=== PATIENT | female | born 1990 | race African-American/Black ===

== ENCOUNTER 2018-01-22 04:28 | Emergency (ER) | payer OTHER ==
--- NOTE | 2018-01-22 04:46 | ED Physician Documentation ---
History of Present Illness - Stated complaint Stated Complaint: CHEST PAIN - Chief complaint Chief Complaint: Cardiac - Additonal information Additional information: hx from pt 27 f denies preg s/p ttubal hx HTN used to be on amlodopine was in good health recent - no fever cough NVD travel leg pain or swelling awoke at midnight about 2 AM felt dull pain in her L shoulder and arm felt hot and cold then developed rapid palp checked her VS SBP was 140 and HR was high 90s on the way here felt mild SOA and LUQ discomfort sx subsided now but not completely gone Review of Systems Constitutional: denies: Fever, Chills Cardiac: reports: Chest pain / pressure, Palpitations Respiratory: reports: Dyspnea GI: reports: Abdominal Pain. denies: Nausea, Vomiting Musculoskeletal: reports: Joint pain (L shoulder) Endocrine: denies: Easy bruising / bleeding Immunocompromised: denies: Immunocompromised PD PAST MEDICAL HISTORY - Past Medical History Past Medical History: Yes Cardiovascular: Hypertension Respiratory: None Neuro: None Endocrine/Autoimmune: None GI: None SALT GRINDER: None : None HEENT: None Psych: None Musculoskeletal: None Derm: None - Past Surgical History Past Surgical History: Yes General: Other /SALT GRINDER: Tubal ligation - Allergies Allergies/Adverse Reactions: Allergies Allergy/AdvReac Type Severity Reaction Status Date / Time codeine AdvReac Itching Verified 01/22/18 04:41 - Social History Does the pt smoke?: No Smoking Status: Never smoker Does the pt drink ETOH?: No Does the pt have substance abuse?: No - Immunizations Immunizations are current?: No - POLST Patient has POLST: No PD ED PE NORMAL - Vitals Vital signs reviewed: Yes - General General: Alert and oriented X 3 - HEENT HEENT: PERRL - Neck Neck: No JVD - Cardiac Cardiac: RRR, No murmur - Respiratory Respiratory: No respiratory distress, Clear bilaterally - Abdomen Abdomen: Soft, Non tender - Derm Derm: Normal color - Extremities Extremities: No deformity, Normal ROM s pain, No edema, No calf tenderness / cord - Neuro Neuro: Alert and oriented X 3 Results - Vitals Vitals: Vital Signs - 24 hr 01/22/18 01/22/18 01/22/18 04:38 04:43 05:19 Temperature 36.8 C Heart Rate 96 90 86 Respiratory 17 16 16 Rate Blood Pressure 177/106 H 143/98 H 139/92 H O2 Saturation 100 100 100 01/22/18 01/22/18 01/22/18 05:33 06:03 06:24 Temperature Heart Rate 91 76 Respiratory 17 15 17 Rate Blood Pressure 123/75 O2 Saturation 100 99 Oxygen O2 Source Room air - EKG (time done) 0440 Rate: Rate (enter#) (90) Rhythm: NSR [place]: Normal Intervals: Normal AK Ischemia: Normal ST segments, Q waves (small non diagnositic inferior) - Labs Labs: Laboratory Tests 01/22/18 01/22/18 01/22/18 05:08 05:08 05:08 WBC 6.8 RBC 4.44 Hgb 13.6 Hct 40.6 MCV 91.5 MCH 30.6 MCHC 33.4 RDW 14.0 Plt Count 280 MPV 7.0 L Neut # (Auto) 3.6 Lymph # (Auto) 2.4 Hale # (Auto) 0.6 Eos # (Auto) 0.1 Baso # (Auto) 0.0 Absolute Nucleated RBC 0.01 Nucleated RBC % 0.1 D-Dimer < 200.0 L Sodium 136 Potassium 3.5 Chloride 104 Carbon Dioxide 24 Anion Gap 8.0 BUN 8 Creatinine 0.9 Estimated GFR (MDRD) 90 Glucose 105 H Calcium 9.2 Total Bilirubin 0.4 AST 17 ALT 13 Alkaline Phosphatase 53 Troponin I Total Protein 7.7 Albumin 4.0 Globulin 3.7 Albumin/Globulin Ratio 1.1 Lipase 29 01/22/18 01/22/18 05:08 06:45 WBC RBC Hgb Hct MCV MCH MCHC RDW Plt Count MPV Neut # (Auto) Lymph # (Auto) Hale # (Auto) Eos # (Auto) Baso # (Auto) Absolute Nucleated RBC Nucleated RBC % D-Dimer Sodium Potassium Chloride Carbon Dioxide Anion Gap BUN Creatinine Estimated GFR (MDRD) Glucose Calcium Total Bilirubin AST ALT Alkaline Phosphatase Troponin I < 0.04 < 0.04 Total Protein Albumin Globulin Albumin/Globulin Ratio Lipase - Rads (name of study) CXR Radiology: See rad report (NACPD) PD MEDICAL DECISION MAKING - ED course ED course: CP palp and SOA since 2 AM subsiding spont EKG NSR trop neg - given age 27 and low risk for CAD will check 2 hr trop in ED but do not think needs admit for stress echo etc CXR NACPD - nl mediastinum d dimer and PERC neg so PE unlikely cause unclear but wup has considered and effectively ruled out ACS PE dissection pna pneumo and I think pt is safe for dc Departure - Departure Disposition: Home, Self Care Clinical Impression: Palpitations Chest pain Qualifiers: Chest pain type: unspecified Qualified Code(s): R07.9 - Chest pain, unspecified Condition: Good Instructions: ED Chest Pain Atypical Unkn Cause Comments: All the tests came back reassuring The EKG and two sets of blood tests do not indicate you have had a heart attack The exam and blood work indicate a blood clot is unlikely And the xray does not show an aneurysm or tear of your aorta - also no infection, collapsed lung, fluid in the lung or tumors So I am not sure why you had the pain, but the work up is very reassuring and i think it is safe for you to go home. Recommend motrin and tylenol as needed for the pain. Follow up with your PMD for a recheck tomorrow Return to the ER if worse or new symptoms develop
[2018-01-22] MEDS ORDERED: KETOROLAC 60 MG/2 ML VIAL IVP STA (04:59)
[2018-01-22 05:12] LABS: BASOPHILS % (AUTO) 0.5 %; EOSINOPHILS # (AUTO) 0.1 10^3/uL (0.0-0.7); HGB - HEMOGLOBIN 13.6 g/dL (12.0-16.0); LYMPHOCYTES # (AUTO) 2.4 10^3/uL (1.5-3.5); LYMPHOCYTES % (AUTO) 35.6 %; MEAN CORPUSCULAR HEMOGLOBIN 30.6 pg (27.0-31.0); MEAN CORPUSCULAR HGB CONC 33.4 g/dL (32.0-36.0); MEAN CORPUSCULAR VOLUME 91.5 fL (81.0-99.0); MONOCYTES # (AUTO) 0.6 10^3/uL (0.0-1.0); MONOCYTES % (AUTO) 9.1 %; NEUTROPHILS # (AUTO) 3.6 10^3/uL (1.5-6.6); NEUTROPHILS % (AUTO) 53.8 %; PLT - PLATELET COUNT 280 10^3/uL (130-450); RED BLOOD COUNT 4.44 10^6/uL (4.20-5.40); WHITE BLOOD COUNT 6.8 x10^3/uL (4.8-10.8)
[2018-01-22 05:25] LABS: ALBUMIN/GLOBULIN RATIO 1.1 (1.0-2.2); BILIRUBIN,TOTAL 0.4 mg/dL (0.2-1.0); CALCIUM 9.2 mg/dL (8.5-10.3); CREATININE 0.9 mg/dL (0.4-1.0); TOTAL PROTEIN 7.7 g/dL (6.7-8.2)
--- NOTE | 2018-01-22 05:55 | XRAY Report ---
Reason: cp Procedure Date: 01/22/2018 Accession Number: [id number] / [id number] Procedure: XR - Chest 2 View X-Ray CPT Code: 07798 FULL RESULT: EXAM: CHEST RADIOGRAPHY EXAM DATE: 01/22/2018 05:33 AM. CLINICAL HISTORY: Chest pain COMPARISON: None. TECHNIQUE: 2 views. FINDINGS: Lungs/Pleura: No focal opacities evident. No pleural effusion. No pneumothorax. Normal volumes. Mediastinum: Heart and mediastinal contours are unremarkable. Other: None. IMPRESSION: Normal 2-view chest radiography. RADIA
[2018-01-22 07:36] VITALS: BP 111/74
== END 2018-01-22 07:43 | disposition home or self-care (01) ==
LOC: ED 04:28
DX: R00.2 Palpitations (principal); R07.9 Chest pain, unspecified; I10 Essential (primary) hypertension; R94.31 Abnormal electrocardiogram [ECG] [EKG]
CPT/HCPCS: 36415; 71046; 80053; 83690; 84484; 85025; 85379; 93005; 96374; 99283; 99284

== ENCOUNTER 2021-01-02 14:03 | Emergency (ER) | payer OTHER ==
[2021-01-02 14:10] VITALS: BP 155/104
--- NOTE | 2021-01-02 15:07 | ED Physician Documentation ---
PD HPI SKIN - Stated complaint Stated Complaint: GROIN PX - Chief complaint Chief Complaint: General - History obtained from History obtained from: Patient - History of Present Illness Timing - onset: How many days ago (3) Timing - duration: Days (3) Timing - details: Gradual onset (History of progressive tenderness and small lump in the right inguinal area. Denies any skin lesions. No dysuria. Denies vaginal discharge.) Location: Other (right inguinal area.) Quality / character: Painful, Swelling. No: Discolored, Draining Associated symptoms: Other (no vaginal discharge). No: Fever, Myalgias, Urinary sx Contributing factors: No: Insect bite /sting, Recent illness Similar symptoms before: Has not had sx before Recently seen: Not recently seen Review of Systems Constitutional: denies: Fever, Chills : denies: Dysuria Skin: denies: Rash, Lesions Neurologic: denies: Focal weakness, Numbness PD PAST MEDICAL HISTORY - Past Medical History Cardiovascular: Hypertension Respiratory: None Neuro: None Endocrine/Autoimmune: None GI: None CIRCULATING NURSE: None : None HEENT: None Psych: None Musculoskeletal: None Derm: None - Past Surgical History Past Surgical History: Yes General: Other /CIRCULATING NURSE: Tubal ligation - Present Medications Home Medications: Ambulatory Orders Medication Instructions Recorded Confirmed Ibuprofen [Motrin] 600 mg PO TID PRN #20 tab 01/02/21 cephALEXin [Keflex] 500 mg PO TID #20 cap 01/02/21 - Allergies Allergies/Adverse Reactions: Allergies Allergy/AdvReac Type Severity Reaction Status Date / Time codeine AdvReac Itching Verified 01/02/21 14:10 - Social History Does the pt smoke?: No Smoking Status: Never smoker Does the pt drink ETOH?: No Does the pt have substance abuse?: No - Immunizations Immunizations are current?: No - POLST Patient has POLST: No PD ED PE NORMAL - Vitals Vital signs reviewed: Yes - General General: Alert and oriented X 3, No acute distress, Well developed/nourished - Abdomen Abdomen: Soft, Non tender - Female Female : Deferred - Back Back: No CVA TTP - Derm Derm: Normal color, No rash - Extremities Extremities: Other (The inguinal area with rounded firmness that is tender feeling approximately 1-1/2 to 2 cm size. Bedside U/S showing archtecture c/w lymph node. No fluid collection. ) Results - Vitals Vitals: Vital Signs - 24 hr 01/02/21 14:08 Temperature 36.5 C Heart Rate 100 Respiratory 16 Rate Blood Pressure 155/104 H O2 Saturation 100 Oxygen O2 Source Room air - Labs Labs: Laboratory Tests 01/02/21 01/02/21 15:25 15:25 Urine Color YELLOW Urine Clarity CLEAR Urine pH 7.0 Ur Specific [place] 1.020 Urine Protein NEGATIVE Urine Glucose (UA) NEGATIVE Urine Ketones NEGATIVE Urine Occult Blood NEGATIVE Urine Nitrite NEGATIVE Urine Bilirubin NEGATIVE Urine Urobilinogen 0.2 (NORMAL) Ur Leukocyte Esterase NEGATIVE Ur Microscopic Review NOT INDICATED Urine Culture Comments NOT INDICATED Urine HCG, Qual NEGATIVE PD MEDICAL DECISION MAKING - ED course Complexity details: re-evaluated patient (The patient's urine is normal. No obvious visible localized infection. It does appear to be a lymph node by bedside ultrasound. We will treat as a likely bacterial cause given the isolated adenopathy.), considered differential (Bedside ultrasound showed the shape and architecture to be consistent with a lymph node. No localized fluid collection. There is distinct from the femoral blood vessels.), d/w patient Departure - Departure Disposition: 01 Home, Self Care Clinical Impression: Acute inguinal lymphadenitis Condition: Stable Record reviewed to determine appropriate education?: Yes Follow-Up: [facility] [Provider Group] Prescriptions: cephALEXin [Keflex] 500 mg PO TID #20 cap Ibuprofen [Motrin] 600 mg PO TID PRN #20 tab PRN Reason: Pain Comments: This appears to be an inflamed lymph node. That typically suggest a nearby infection that your body is trying to process. Your urine test appears normal. Recheck if other symptoms develop such as vaginal discharge or skin sores etc. Otherwise we will treat with antibiotics for the inflamed lymph node presuming some local infection process. Also use some warm moist towels to the area to improve blood flow and help fight off infection. Use ibuprofen 3 times a day with food to help reduce inflammation and pain. To that add Tylenol if needed. Recheck if not improved well over the next 2 to 3 days and resolved by 3-5 days, sooner if worsened. I transmitted your prescriptions to [facility] in [place]. Discharge Date/Time: 01/02/21 15:58
[2021-01-02] MEDS ORDERED: ACETAMINOPHEN 325 MG TABLET PO STA (15:26)
[2021-01-02] MEDS ORDERED: IBUPROFEN 600 MG TABLET PO STA (15:26)
[2021-01-02 15:33] LABS: BILIRUBIN,URINE NEGATIVE (NEGATIVE); GLUCOSE, URINE (UA) NEGATIVE (NEGATIVE); KETONES,URINE (UA) NEGATIVE (NEGATIVE); LEUKOCYTE ESTERASE, URINE NEGATIVE (NEGATIVE); NITRITE,URINE NEGATIVE (NEGATIVE); OCCULT BLOOD,URINE NEGATIVE (NEGATIVE); PROTEIN,URINE NEGATIVE (NEGATIVE); UROBILINOGEN,URINE 0.2 (NORMAL) E.U./dL (NORMAL)
[2021-01-02 15:34] LABS: CLARITY,URINE CLEAR (CLEAR)
[2021-01-02 15:36] LABS: HCG UR QUAL NEGATIVE
[2021-01-02] MEDS ORDERED: cephALEXin 250 MG CAPSULE PO STA (15:43)
== END 2021-01-02 15:58 | disposition home or self-care (01) ==
LOC: ED 14:03
DX: L04.1 Acute lymphadenitis of trunk (principal); I10 Essential (primary) hypertension
CPT/HCPCS: 81003; 81025; 99283; A9270; 81001; 87086

== ENCOUNTER 2022-09-09 07:23 | Emergency (ER) | payer OTHER ==
--- NOTE | 2022-09-09 07:39 | ED Physician Documentation ---
PD HPI BACK PAIN - Stated complaint Stated Complaint: BACK PX - Chief complaint Chief Complaint: Back Pain - History obtained from History obtained from: Patient - History of Present Illness Timing - onset: How many days ago (6) Timing - duration: Days (6) Timing - details: Gradual onset (onset gradual overnight into morning 6 days ago, but pt had been at amusement park type place and rode on a roller coaster type of ride that had quick lurching and side to side motion. No abrupt pain at the time.), Still present Location: Lower, Right Review of Systems Constitutional: denies: Fever, Chills, Myalgias : denies: Incontinent Skin: denies: Rash, Lesions Musculoskeletal: reports: Back pain Neurologic: denies: Focal weakness, Numbness PD PAST MEDICAL HISTORY - Past Medical History Cardiovascular: Hypertension Respiratory: None Neuro: None Endocrine/Autoimmune: None GI: None HAND ETCHER HELPER: None : None HEENT: None Psych: None Musculoskeletal: None Derm: None - Past Surgical History Past Surgical History: Yes General: Other /HAND ETCHER HELPER: Tubal ligation - Present Medications Home Medications: Ambulatory Orders Medication Instructions Recorded Confirmed Cyclobenzaprine [Flexeril] 10 mg PO TID PRN 09/09/22 09/09/22 HYDROcod/ACETAM 5/325 [Shiro 5/325] 1 ea PO Q6H PRN #14 tablet 09/09/22 Meloxicam [Mobic] 7.5 mg PO BID 10 Days #20 tablet 09/09/22 - Allergies Allergies/Adverse Reactions: Allergies Allergy/AdvReac Type Severity Reaction Status Date / Time codeine AdvReac Itching Verified 01/02/21 14:10 - Social History Does the pt smoke?: No Smoking Status: Never smoker Does the pt drink ETOH?: No Does the pt have substance abuse?: No - Immunizations Immunizations are current?: No - POLST Patient has POLST: No PD ED PE NORMAL - Vitals Vital signs reviewed: Yes - General General: Alert and oriented X 3, Well developed/nourished, Other (guarding ROM of the back and moving slowly. ) - Abdomen Abdomen: Soft, Non tender - Back Back: No CVA TTP, Other (she is tender at TL area with palpation over midline. Also tender in muscles. ) - Derm Derm: Normal color, Warm and dry - Neuro Neuro: Alert and oriented X 3, No motor deficit, No sensory deficit Results - Vitals Vitals: Vital Signs - 24 hr 09/09/22 09/09/22 07:28 09:42 Temperature 37.1 C Heart Rate 88 70 Respiratory 16 20 Rate Blood Pressure 151/112 H 162/101 H O2 Saturation 99 100 Oxygen O2 Source Room air - Rads (name of study) lumbar CT Relevant Findings:: Prelim report reviewed, EMP independent interpretation of test (no acute abnormlaities) PD Medical Decision Making - ED course Complexity details: reviewed results (lumbar CT without acute injury.), considered differential (does not have neuro symptoms nor other red flags. However the pain did come on after jolting movements on roller coaster like ride. Has pain midline with movement. She would like imaging and it seems concerning mechaism to consider compression fracture.), d/w patient Departure - Departure Disposition: 01 Home, Self Care Clinical Impression: Strain of muscle, fascia and tendon of lower back, initial encounter Low back pain Qualifiers: Chronicity: acute Back pain laterality: bilateral Sciatica presence: without sciatica Qualified Code(s): M54.50 - Low back pain, unspecified Condition: Stable Instructions: ED Sprain Strain Lumbar Prescriptions: Meloxicam [Mobic] 7.5 mg PO BID 10 Days #20 tablet HYDROcod/ACETAM 5/325 [Shiro 5/325] 1 ea PO Q6H PRN #14 tablet PRN Reason: Pain Comments: No obvious fractures or dislocations. The remaining disc spaces appear good and no signs of obvious herniations. Presume the injury and pain is related to muscles and tendons through the back. Commonly this can be bothersome for even several weeks at times. The treatment combination is typically limited lifting and bending, along with anti-infla mmatories and muscle relaxants. Add Tylenol every 4-6 hours regularly for pain. Increase to hydrocodone/acetaminophen periodically if needed for worse pain. Physical treatments such as bending stretching heat massage and chiropractic are all good. If this takes longer to improve, your primary care may initiate physical therapy as well. I sent prescriptions for different anti-inflammatory as well as some pain medicine to your preferred pharmacy. Follow-up with your primary care if not improved over the next week. I am prescribing a short course of narcotic pain medication for you. These are potentially dangerous and addictive medications that should be used carefully. These medications may constipate you. Take an [id number] stool softener such as docusate twice daily with plenty of water while taking these medications. If you go 24 hours without a bowel movement, take [id number] MiraLAX, per package instructions. Do not drink or drive while taking these medications. If you received narcotic or sedating medications while in the emergency department do not drive for 24 hours. Store this medication in a safe, secure place and out of reach of children. It is a violation of federal law to give or sell this medication to another person or to use in a manner other than prescribed. The ED will not refill narcotic prescriptions, including prescriptions lost or stolen. You can dispose of unwanted medications at the [facility]'s office or at several pharmacies such as [facility] Discharge Date/Time: 09/09/22 09:43
[2022-09-09] MEDS ORDERED: KETOROLAC 30 MG/ML VIAL IVP STA (07:56)
[2022-09-09] MEDS ORDERED: HYDROmorphone 1 MG/ML CARPUJECT IM STA (07:56)
[2022-09-09] MEDS ORDERED: KETOROLAC 30 MG/ML VIAL IM STA (08:04)
--- NOTE | 2022-09-09 09:28 | CT Report ---
PROCEDURE: LUMBAR SPINE WO INDICATIONS: acute low back pain after amusement ride TECHNIQUE: Noncontrast 3 mm thick sections acquired from the T12 level to the sacrum. Sagittal and coronal refo rmats were constructed. For radiation dose reduction, the following was used: automated exposure co ntrol, adjustment of mA and/or kV according to patient size. COMPARISON: None. FINDINGS: Image quality: Excellent. Bones: There is normal bony alignment. No acute vertebral body compression fractures. No suspiciou s lytic or blastic bony lesions. Central spinal caliber is of normal overall caliber. No pars defec ts. T12-L1: Normal in appearance. L1-L2: Normal in appearance. L2-L3: Normal in appearance. L3-L4: Normal in appearance. L4-L5: Normal in appearance. L5-S1: Normal in appearance. Soft tissues: No retroperitoneal masses or hematomas. Visualized aorta is normal in caliber. IMPRESSION: Normal CT of the lumbar spine. Reviewed by: Cong Gordillo on 09/09/2022 9:26 AM PDT Approved by: Cong Gordillo on 09/09/2022 9:26 AM PDT Station ID: [id number]
[2022-09-09 09:47] VITALS: BP 162/101
== END 2022-09-09 09:43 | disposition home or self-care (01) ==
LOC: ED 07:23
DX: S39.012A Strain of muscle, fascia and tendon of lower back, initial encounter (principal); X50.9XXA Other and unspecified overexertion or strenuous movements or postures, initial encounter; Y93.89 Activity, other specified; Y92.831 Amusement park as the place of occurrence of the external cause
CPT/HCPCS: 72131; 96372; 99284; J1170

== ENCOUNTER 2023-02-21 13:12 | Outpatient (CLI) | payer OTHER ==
--- NOTE | 2023-02-21 14:10 | Sleep Patient Instructions ---
Sleep Center Visit Summary - Patient Visit Information Reason for Visit: Initial consult for evaluation of sleep disordered breathing and other sleep issues. - Patient Instructions Instructions Attached: Sleep Study, Sleep Study Home Monitor Additional Instructions: You will be completing a sleep study, either an in-lab polysomnography (PSG) or home sleep study (HST). You will follow-up in the sleep care office after the sleep study is completed to hear the results and talk about therapy, if needed. You will be called by our office staff to schedule this appointment, but you may contact us with any questions. - Clinic Information Contact: [facility] [address] [place] [id number] [email or web address] T: [phone]
--- NOTE | 2023-02-21 14:15 | SLEEP CARE CONSULTATION ---
Information from patient questionnaire entered by Radha Wood. I have reviewed and concur with the information entered by Radha Wood. This document represents the service I personally performed and the decisions made by me, Joanie Ram ARNP. History of Present Illness Service Date and Time: 02/21/2023 1312 Reason for Visit: New patient Chief Complaint: reports: Unrefreshed sleep, Snoring, Excessive daytime sleepiness, Observed pauses in breathing, Fatigue, Frequent awakenings at night Date of Onset: OVER 1 YR Usual bedtime: 930PM Time it takes to fall asleep: 10-20 minutes Snores at night: Yes Observed to quit breathing while asleep: Yes Sleeps alone due to snoring: No Number of times waking at night: 1-2 Reasons for waking at night: reports: Choking, Snoring, Gasping for air, Other (UNKNOWN; nightmares too) Toss, Turn, or Twitch while sleeping: Yes Recalls having dreams: Yes Usually gets out of bed at: 5AM; 0630 sometimes on weekends Feels refreshed in the morning: No Morning headache: No Sleepy or fatigued during the day: Yes (has unintentional naps when sitting still for movies, etc) Ever fallen asleep while driving: No Takes day naps: No Dreams during day naps: Yes Prior sleep studies: No Additional HPI information: I had the pleasure of seeing RADHA NEGRON today regarding the possibility of her having a sleep disorder. Her current complaints are excessive daytime sleepiness, fatigue, frequent night awakenings, observed pauses in breathing, snoring and unrefreshed sleep. She says she has been waking up gasping for air, feeling like she is choking and snoring. She has been told that she stops breathing at night. She says she is waking up tired and feeling tired during the day. She feels like she is waking up frequently during the night. She has gained weight over the last 5 years. She says her mother has sleep apnea but is not treated and she thinks her father has sleep apnea too but has never been tested. 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 Patient is and lives in [place]. Have you smoked in the past 12 months: No Alcohol use: Yes Alcohol amount and frequency: 1XPER MONTH Caffeine use: Yes Caffeine amount and frequency: 1 -2 CUPS DAILY Family History Family history of sleep disordered breathing: Yes Family Hx Sleep Apnea: Mother: Snoring, Sleep apnea - Untreated, Father: Snoring, Sleep apnea - Untreated Allergies and Home Medications Known drug allergies: Yes (codeine) Drug allergies reviewed: Yes Home medication list reviewed: Yes (as listed) Allergy and home medication list: Allergies codeine Adverse Reaction (Verified 02/20/23 13:56) Itching Home Medications Medication Instructions Recorded Confirmed Last Taken Type Amlodipine Besylate [Norvasc] See Rx Instructions .ROUTE .COMPLEX 02/21/23 02/21/23 Unknown History Biotin See Rx Instructions .ROUTE .COMPLEX 02/21/23 02/21/23 Unknown History Cholecalciferol (Vitamin D3) See Rx Instructions .ROUTE .COMPLEX 02/21/23 02/21/23 Unknown History [Vitamin D3] Multivitamin See Rx Instructions .ROUTE .COMPLEX 02/21/23 02/21/23 Unknown History Review of Systems Weight gain over past 5 years: 40-50 Cardiovascular: reports: high blood pressure, leg or foot swelling Gastrointestinal: denies: heartburn Neurological: reports: headaches Psychiatric: reports: anxiety Ear/Nose/Throat: reports: wisdom teeth removed. denies: tonsillectomy Endocrine: reports: sluggishness Physical Exam Vital signs obtained and entered by: RADHA Chaves MA Blood Pressure: 167/105 (LEFT ARM) Cuff size: regular Heart Rate: 77 O2 Saturation: 100 Height: 5 ft 2.5 in Weight: 222 lb 9.6 oz Body Mass Index: 40.0 BMI Classification: Morbidly Obese Neck circumference: 16 Mouth and throat: narrow oropharynx Soft palate: long Hard palate: normal Uvula: normal Uvula visualization: 25% Mallampati Class III Tongue: normal in size Tonsils: 1+ Neck: normal w/o lymphadenopathy or thyromegaly Heart: regular rate and rhythm Lungs: clear bilaterally Impression and Plan 1. Suspected Obstructive Sleep Apnea-Hypopnea Syndrome, as suggested by a history of loud and irregular snoring, observed cessation of breath while asleep, gasping or choking in sleep, frequent awakening during the night, unrefreshed sleep, cognitive impairment, and excessive daytime sleepiness. Narrow oropharynx and obesity are common predisposing factors for obstructive sleep apnea-hypopnea syndrome. I recommend proceeding to polysomnography to confirm the diagnosis and to assess severity. If the patient has significant sleep disordered breathing, a manual CPAP titration study will also be performed to find the optimal treatment pressure. I informed the patient of what the sleep studies involve and after some discussion, obtained agreement to proceed. The pathophysiology of obstructive sleep apnea-hypopnea syndrome was discussed with the patient and health risks of cardiovascular and cerebrovascular disease if not treated. Risks of drowsy driving discussed in detail and patient advised to avoid long distance driving and to dross puller at the first sign of drowsiness. Patient agreed to plan. * Schedule polysomnography * Avoid long distance driving or driving when feeling sleepy. * Avoid alcohol, sedative and muscle relaxant around bedtime. * Attempt to lose weight. * Review instructions provided by trained office staff on how to prepare for the sleep study. * Return for follow-up after sleep study completed. Counseling Topics: Weight loss health impact Plan: PSG/HST Visit Type: In Office Time Spent with Patient (minutes): 23 Provider Statement: I spent 100% of the Face to Face Visit with the patient with greater than 50% spent counseling the patient and coordination of care.
[2023-02-21 14:21] VITALS: BP 167/105; O2SAT 100
== END 2023-02-21 13:13 | disposition home or self-care (01) ==
LOC: SC 13:12
PROVIDERS: ATTEND Nurse Practitioner Family
DX: R06.83 Snoring (principal); I10 Essential (primary) hypertension; E66.01 Morbid (severe) obesity due to excess calories; Z68.41 Body mass index [BMI] 40.0-44.9, adult; R06.81 Apnea, not elsewhere classified; R53.83 Other fatigue; G47.10 Hypersomnia, unspecified
CPT/HCPCS: 99202; 99212

== ENCOUNTER 2023-03-22 10:51 | Outpatient (CLI) | payer OTHER | END 2023-03-22 10:52 | disposition home or self-care (01) | LOC: SC 10:51 | PROVIDERS: ATTEND Nurse Practitioner Family | DX: G47.33 Obstructive sleep apnea (adult) (pediatric) (principal); R09.02 Hypoxemia; R00.0 Tachycardia, unspecified; E66.01 Morbid (severe) obesity due to excess calories; Z68.41 Body mass index [BMI] 40.0-44.9, adult | CPT/HCPCS: 95806 ==

== ENCOUNTER 2023-04-03 15:26 | Outpatient (CLI) | payer OTHER ==
--- NOTE | 2023-04-03 15:20 | SLEEP CARE CONSULTATION ---
Information from patient questionnaire entered by Radha Wood. I have reviewed and concur with the information entered by Radha Wood. This document represents the service I personally performed and the decisions made by , Joanie Ram ARNP. History of Present Illness Service Date and Time: 04/03/2023 1500 Initial [place] Sleepiness Scale score: 14 (12/24/22) Current [place] Sleepiness Scale score: 7 (04/03/23) Additional HPI information: RADHA NEGRON returns via telephone visit for follow up and results of the recently performed polysomnography. The sleep study showed mild obstructive sleep apnea with an average AHI of 13.1 and rayray oxygen saturation of 87%. I explained the pathophysiology behind obstructive sleep apnea. We then spent quite a bit of time discussing different treatment options. For mild obstructi ve sleep apnea, surgery and oral appliance are alternatives to nasal CPAP therapy but in moderate or severe cases, nasal CPAP is the most effective and reliable treatment. Because apnea is primarily in supine position, then positional management therapy could be effective. Methods discussed such as positioning with pillows, using a T-shirt with tennis balls in the back or commercial products that have a pillow format on back to prevent supine sleep. I reviewed the impact of weight changes on sleep apnea and strongly recommended losing weight. After some discussion, the patient opted to go with the nasal CPAP therapy. Nasal autoCPAP set at 4-15 cmH20 will be ordered with rationale explained. A manual titration study will be ordered if unable to find optimal pressure with office adjustments. I explained how CPAP machine works and what to expect when using the machine. Using CPAP every night in order to get used to it was emphasized. Patient advised to put CPAP mask on before getting into bed so as not to fall asleep without CPAP. To assist acclimation to CPAP use, it could also be used for a short time during day while reading or watching TV. The patient was instructed to call the CPAP supplier to discuss any mechanical problem that may occur. If the mask given is uncomfortable or is difficult to keep on through the night even with adjustment, contact the CPAP supplier as many will replace with another mask style if notified before 30 days. If snoring or perceives is not getting enough air or too much air from the machine, notify this office. Patient counseled not drink alcohol less than 4 hours before bedtime as it can increase snoring and apnea. Patient was cautioned about risks of drowsy driving until sleepiness symptoms resolve. Patient denies drowsy driving. Sleep Study - Results Type of Sleep Study: Home sleep study (COMPLETED 03/22/23) Prior sleep studies: No Polysomnography/Home Sleep Study results: Physician Impression: The quality of the study is good. The length of the study is adequate (> 240 minutes). Please also see the tabulated and graphic data. 1. Obstructive Sleep Apnea-Hypopnea (ICD-10 G47.33), mild, with an AHI of 13.1/hr and rayray SaO2 of 87%. During the study, the patient had 51 apneas (51 obstructive, 0 central, 0 mixed) and 32 hypopneas. The longest episode lasted 112.0 seconds. The respiratory events occurred almost exclusively during supine sleep (supine AHI was 14.2 and non-supine, 4.94). 2. Hypoxemia (ICD-10 R09.02), mild, with the lowest oxygen saturation of 87 % and 0.5 minutes with SaO2 under 90%. Baseline oxygen saturation was normal (Average oxygen saturation was 96%). 3. Tachycardia, with maximum recorded heart rate of 124 beats per minute. Allergies and Home Medications Known drug allergies: Yes (codeine) Drug allergies reviewed: Yes Home medication list reviewed: Yes (no changes) Allergy and home medication list: Allergies codeine Adverse Reaction (Verified 03/30/23 11:59) Itching Review of Systems Review of systems same as previous: Yes (NO CHANGE) Physical Exam Vital signs obtained and entered by: RADHA Chaves MA Blood Pressure: 138/83 (PER PT) Height: 5 ft 2 in (PER PT) Weight: 219 lb (PER PT) Body Mass Index: 40.0 BMI Classification: Morbidly Obese Impression and Plan 1. Obstructive Sleep Apnea-Hypopnea Syndrome, mild, with lowest oxygen saturation of 87%. Obviously this is the cause of the patients symptoms of unrefreshed sleep, and excessive daytime sleepiness. Positive pressure therapy could benefit hypertension and anxiety. As mentioned above, the patient will be started on nasal autoCPAP therapy with pressure set at 4-15 cmH2O. A manual titration study will be completed if unable to find optimal treatment pressure with office adjustments. Compliance guidelines also reviewed. A copy of compliance guidelines will be given for reference at check out. Because the apnea is more severe supine, I instructed to avoid sleeping supine using pillow positioning until able to start CPAP use. 2. Hypoxemia, mild, with a rayray oxygen saturation of 87% and 0.5 minutes spent under 90%. The baseline oxygen saturation was normal with an average oxygen saturation of 96%. 3. Obesity, unspecified. Currently patients BMI is 40. Obesity increases the risk of apnea, CPAP pressure requirements and overall health risks especially cardiovascular and diabetes. Thus patient is advised to lose weight. * Nasal auto CPAP therapy, pressure at 4-15 cm H2O. * Attempt to lose weight. * Avoid alcohol consumption near bedtime. * Avoid supine sleep until using CPAP. * The patient is again cautioned about driving until sleepiness completely resolves. * Return one month after CPAP obtained. I will assess response to therapy and compliance at that time. Counseling Topics: Weight loss health impact Prescriptions: Auto CPAP Visit Type: Telehealth Phone Video Type: Doximity Patient Location: Home Location of Provider: Office Patient agrees and consents to this telehealth visit type: Yes Time Spent with Patient (minutes): 17 Provider Statement: I spent 100% of the Telehealth Phone Call with the patient with greater than 50% spent counseling the patient and coordination of care.
[2023-04-03 15:21] VITALS: BP 138/83
== END 2023-04-03 15:27 | disposition home or self-care (01) ==
LOC: SC 15:26
PROVIDERS: ATTEND Nurse Practitioner Family
DX: G47.33 Obstructive sleep apnea (adult) (pediatric) (principal); R09.02 Hypoxemia; E66.01 Morbid (severe) obesity due to excess calories; Z68.41 Body mass index [BMI] 40.0-44.9, adult
CPT/HCPCS: 99442

== ENCOUNTER 2023-07-17 14:43 | Outpatient (CLI) | payer OTHER ==
--- NOTE | 2023-07-17 15:18 | Sleep Patient Instructions ---
Sleep Center Visit Summary - Patient Visit Information Reason for Visit: First compliance follow-up - Patient Instructions Additional Instructions: You were here for follow up of CPAP therapy. You will be continued on CPAP therapy with pressure at 6-15 cmH2O. Please let us know if the pressure change is uncomfortable and we can make further adjustments of the pressure. You should follow up with sleep care in 1-2 months. You may contact us sooner for any questions or concerns. - Clinic Information Contact: [facility] [address] [place] [address] [email or web address] T: [phone]
--- NOTE | 2023-07-17 15:23 | SLEEP CARE CONSULTATION ---
Information from patient questionnaire entered by Radha Wood. I have reviewed and concur with the information entered by Radha Wood. This document represents the service I personally performed and the decisions made by , Joanie Ram ARNP. History of Present Illness Service Date and Time: 07/17/2023 1443 Previous diagnosis: Mild, Obstructive Sleep Apnea-Hypopnea Syndrome AHI: 13.1 (on 03/22/23) Reason for follow up: first compliance (RESMED S/U ) Equipment type: CPAP (ResMed Airsense 11, s/u 04/30/2023) Equipment obtained from: Other ([facility]) Mask style: Nasal pillows (small cushion) Backup mask available: No (will keep old mask when replaced) Last cushion change: 4 weeks Prior sleep studies: No Type of Sleep Study: Home sleep study (COMPLETED 03/22/23) HPI additional information: RADHA NEGRON was diagnosed to have mild, AHI 13.1, obstructive sleep apnea- hypopnea syndrome and returned today for CPAP therapy first compliance follow- up. Sleep Study - Results Type of Sleep Study: Home sleep study (COMPLETED 03/22/23) Prior sleep studies: No CPAP Compliance Data - Data Reviewed with Patient Average duration of nightly device use: 24 minutes Compliance rate %: 0 (06/15/2023-07/14/2023; 02/03 days used) Current pressure setting (cmH2O): 4-15 (median 4.5, avg 5.2, max 5.3) Average residual AHI: 0.1 Average large leak: 2.4 L/min Subjective Missed days of use due to: reports: mask issues, illness (nasal congestion from illness for a week) Patient concerns: reports: mask discomfort, nasal congestion, dry mouth, nose, throat (dry mouth), epistaxis. denies: aerophagia, air blowing in eyes, mask leak noise, condensation in mask/hose Observed to snore while using device: No Current pressure setting perceived as: too low On therapy, patient: reports: other (feeling awake, more tired after use). d enies: drowsiness while driving Initial [place] Sleepiness Scale score: 14 (12/24/22) Current [place] Sleepiness Scale score: 14 Allergies and Home Medications Known drug allergies: Yes (as listed) Drug allergies reviewed: Yes Home medication list reviewed: Yes (HCTZ) Allergy and home medication list: Allergies codeine Adverse Reaction (Verified 07/16/23 10:35) Itching Review of Systems Review of systems same as previous: No (monitoring blood pressure) Physical Exam Vital signs obtained and entered by: JOANIE PEREZ Blood Pressure: 150/90 Cuff size: long (left arm) Heart Rate: 94 O2 Saturation: 98 Height: 5 ft 2 in (PER PT) Weight: 226 lb 3.2 oz Body Mass Index: 41.3 BMI Classification: Morbidly Obese Impression and Plan 1. Obstructive Sleep Apnea-Hypopnea Syndrome, mild, with poor treatment compliance and good apnea control. She has had difficulty wearing the mask because the pressure feels too low. I will increase her ramp starting pressure to 5 cmH2O. The patients pressure will be changed to autoCPAP 6-15 cmH20 for patient comfort and to reduce AHI. Patient advised to contact me if pressure change is uncomfortable so that it can be adjusted. Goals for apnea control discussed. She did have some nasal congestion due to an illness that reduced her use of the CPAP. She also had some bloody noses and oral dryness for which she adjusted her humidity and this improved. Patient's apnea severity and rationale for treatment to reduce apnea, improve sleep quality and reduce cardiovascular and cerebrovascular events was reviewed. I also reviewed the benefit of consistent device use of CPAP for hypertension, anxiety. 2. Obesity, unspecified. Currently patients BMI is 41.3. Obesity increases the risk of apnea, CPAP pressure requirements and overall health risks especially cardiovascular and diabetes. Thus patient is advised to lose weight. * Change auto CPAP pressure at 6-15 cmH2O * Increase ramp starting pressure to 5 cmH2O * Notify me if snoring with mask or feeling that the pressure is too much or too little * Attempt to lose weight * Call this office if any problems using CPAP * Return for follow up in 1-2 months, or sooner if concerns arise Adjust device pressure to (cmH2O): 6-15 Counseling Topics: Spare mask, Weight loss health impact Follow up with Sleep Care in: 1-2 months Visit Type: In Office Time Spent with Patient (minutes): 26 Provider Statement: I spent 100% of the Face to Face Visit with the patient with greater than 50% spent counseling the patient and coordination of care.
[2023-07-17 15:24] VITALS: BP 150/90; O2SAT 98
== END 2023-07-17 14:44 | disposition home or self-care (01) ==
LOC: SC 14:43
PROVIDERS: ATTEND Nurse Practitioner Family
DX: G47.33 Obstructive sleep apnea (adult) (pediatric) (principal); E66.01 Morbid (severe) obesity due to excess calories; Z68.41 Body mass index [BMI] 40.0-44.9, adult
CPT/HCPCS: 99212; 99213

== ENCOUNTER 2023-09-16 09:50 | Emergency (ER) | payer OTHER ==
[2023-09-16 10:04] VITALS: O2SAT 100
[2023-09-16 10:18] LABS: BASOPHILS % (AUTO) 0.4 %; EOSINOPHILS # (AUTO) 0.1 10^3/uL (0.0-0.7); EOSINOPHILS % (AUTO) 1.1 %; HCT - HEMATOCRIT 41.6 % (37.0-47.0); HGB - HEMOGLOBIN 13.7 g/dL (12.0-16.0); LYMPHOCYTES # (AUTO) 2.3 10^3/uL (1.5-3.5); LYMPHOCYTES % (AUTO) 31.1 %; MEAN CORPUSCULAR HEMOGLOBIN 28.9 pg (27.0-31.0); MEAN CORPUSCULAR HGB CONC 32.9 g/dL (32.0-36.0); MEAN CORPUSCULAR VOLUME 87.8 fL (81.0-99.0); MEAN PLATELET VOLUME 8.5 fL (7.9-10.8); MONOCYTES # (AUTO) 0.5 10^3/uL (0.0-1.0); MONOCYTES % (AUTO) 7.2 %; NEUTROPHILS # (AUTO) 4.4 10^3/uL (1.5-6.6); NEUTROPHILS % (AUTO) 59.8 %; PLT - PLATELET COUNT 356 10^3/uL (130-450); RED BLOOD COUNT 4.74 10^6/uL (4.20-5.40); RED CELL DISTRIBUTION WIDTH 14.5 % (12.0-15.0); WHITE BLOOD COUNT 7.3 x10^3/uL (4.8-10.8)
[2023-09-16 10:36] LABS: ALBUMIN 4.3 g/dL (3.2-5.5); ALBUMIN/GLOBULIN RATIO 1.1 (1.0-2.2); BILIRUBIN,TOTAL 0.4 mg/dL (0.2-1.0); CALCIUM 9.8 mg/dL (8.5-10.3); CREATININE 0.9 mg/dL (0.6-1.3); POTASSIUM 4.2 mmol/L (3.5-4.5); TOTAL PROTEIN 8.1 g/dL (6.4-8.9)
[2023-09-16 10:55] LABS: BILIRUBIN,URINE NEGATIVE (NEGATIVE); GLUCOSE, URINE (UA) NEGATIVE (NEGATIVE); KETONES,URINE (UA) NEGATIVE (NEGATIVE); LEUKOCYTE ESTERASE, URINE NEGATIVE (NEGATIVE); NITRITE,URINE NEGATIVE (NEGATIVE); OCCULT BLOOD,URINE NEGATIVE (NEGATIVE); PH,URINE 7.5 PH (5.0-7.5); PROTEIN,URINE NEGATIVE (NEGATIVE); UROBILINOGEN,URINE 0.2 (NORMAL) E.U./dL (NORMAL)
[2023-09-16 10:57] LABS: CLARITY,URINE CLEAR (CLEAR)
--- NOTE | 2023-09-16 11:12 | ED Physician Documentation ---
History of Present Illness - Stated complaint Stated Complaint: N/V,DAVIS,STOMACH PX - Chief complaint Chief Complaint: Abd Pain - History obtained from History obtained from: Patient - History of Present Illness Timing: Prior to arrival - Additonal information Additional information: Patient is a 32-year-old female presenting to the emergency department with nausea vomiting symptoms and diarrhea. She notes about 3 episodes of vomiting 3 episodes of soft light brown diarrhea this morning. She notes symptoms started early this morning. She was eating and drinking normally last night and then overnight developed some abdominal queasiness. She denies any abdominal pain at this time. She denies any fevers or chills. No recent sick contacts. She ate ice cream last night does not remember eating anything to upset her stomach. She has no history of abdominal surgeries. She does have history of endometriosis. She denies being . Last normal menstrual period was 2 days ago. PD PAST MEDICAL HISTORY - Past Medical History Past Medical History: Yes Cardiovascular: Hypertension Respiratory: None Neuro: None Endocrine/Autoimmune: None GI: None POTATO SORTER: None : None HEENT: None Psych: None Musculoskeletal: None Derm: None - Past Surgical History Past Surgical History: Yes General: Other /POTATO SORTER: Tubal ligation - Present Medications Home Medications: Ambulatory Orders Medication Instructions Recorded Confirmed Amlodipine Besylate [Norvasc] 10 mg ORAL DAILY 02/21/23 09/16/23 Biotin 1,000 mcg ORAL DAILY 02/21/23 09/16/23 Cholecalciferol (Vitamin D3) 1,250 mcg ORAL DAILY 02/21/23 09/16/23 [Vitamin D3] Multivitamin 1 tab ORAL DAILY 02/21/23 09/16/23 Dicyclomine [Bentyl] 1 - 2 tab PO QID PRN #20 cap 09/16/23 Ondansetron Odt [Zofran] 4 mg TL Q6H PRN #10 tablet 09/16/23 hydroCHLOROthiazide [Hydrodiuril] 12.5 mg PO DAILY 09/16/23 09/16/23 - Allergies Allergies/Adverse Reactions: Allergies Allergy/AdvReac Type Severity Reaction Status Date / Time codeine AdvReac Itching Verified 09/16/23 10:02 - Social History Does the pt smoke?: No Smoking Status: Never smoker Does the pt drink ETOH?: No Does the pt have substance abuse?: No - Immunizations Immunizations are current?: No - POLST Patient has POLST: No PD ED PE NORMAL - Vitals Vital signs reviewed: Yes - General General: Alert and oriented X 3 - HEENT HEENT: Atraumatic, PERRL - Neck Neck: Supple, no meningeal sign - Cardiac Cardiac: RRR, No murmur, No gallop, No rub, Strong equal pulses - Respiratory Respiratory: No respiratory distress, Clear bilaterally - Abdomen Abdomen: Normal bowel sounds, Soft, Non tender, Non distended - Female Female : Deferred - Rectal Rectal: Deferred - Back Back: No CVA TTP - Derm Derm: Normal color, No rash - Neuro Neuro: Alert and oriented X 3 Results - Vitals Vitals: Vital Signs - 24 hr 09/16/23 09/16/23 10:00 12:54 Temperature 36.1 C L Heart Rate 93 87 Respiratory 20 18 Rate Blood Pressure 185/123 H 167/103 H O2 Saturation 100 Oxygen O2 Source Room air - Labs Labs: Laboratory Tests 09/16/23 09/16/23 09/16/23 10:05 10:13 10:13 WBC 7.3 RBC 4.74 Hgb 13.7 Hct 41.6 MCV 87.8 MCH 28.9 MCHC 32.9 RDW 14.5 Plt Count 356 MPV 8.5 Neut # (Auto) 4.4 Lymph # (Auto) 2.3 [place] # (Auto) 0.5 Eos # (Auto) 0.1 Baso # (Auto) 0.0 Absolute Nucleated RBC 0.00 Nucleated RBC % 0.0 Sodium 138 Potassium 4.2 Chloride 106 Carbon Dioxide 27 Anion Gap 5.0 L BUN 12 Creatinine 0.9 Estimated GFR (MDRD) 87 L Glucose 101 Calcium 9.8 Total Bilirubin 0.4 AST 11 ALT 9 L Alkaline Phosphatase 55 Total Protein 8.1 Albumin 4.3 Globulin 3.8 Albumin/Globulin Ratio 1.1 Lipase 28 Urine Color YELLOW Urine Clarity CLEAR Urine pH 7.5 Ur Specific [place] 1.015 Urine Protein NEGATIVE Urine Glucose (UA) NEGATIVE Urine Ketones NEGATIVE Urine Occult Blood NEGATIVE Urine Nitrite NEGATIVE Urine Bilirubin NEGATIVE Urine Urobilinogen 0.2 (NORMAL) Ur Leukocyte Esterase NEGATIVE Ur Microscopic Review NOT INDICATED Urine Culture Comments NOT INDICATED Urine HCG, Qual 09/16/23 Unknown WBC RBC Hgb Hct MCV MCH MCHC RDW Plt Count MPV Neut # (Auto) Lymph # (Auto) [place] # (Auto) Eos # (Auto) Baso # (Auto) Absolute Nucleated RBC Nucleated RBC % Sodium Potassium Chloride Carbon Dioxide Anion Gap BUN Creatinine Estimated GFR (MDRD) Glucose Calcium Total Bilirubin AST ALT Alkaline Phosphatase Total Protein Albumin Globulin Albumin/Globulin Ratio Lipase Urine Color Urine Clarity Urine pH Ur Specific [place] Urine Protein Urine Glucose (UA) Urine Ketones Urine Occult Blood Urine Nitrite Urine Bilirubin Urine Urobilinogen Ur Leukocyte Esterase Ur Microscopic Review Urine Culture Comments Urine HCG, Qual NEGATIVE PD Medical Decision Making - ED course Complexity details: reviewed old records, reviewed results ED course: Patient is a 32-year-old female presenting to the emergency department with nausea vomiting and diarrhea symptoms. Symptoms seem to have started overnight and into this morning. Patient was feeling fine yesterday. She denies any fevers chills or abdominal pain associated with her symptoms. No recent sick contacts. Vitals stable on arrival. Patient is afebrile nontachycardic. Physical exam shows no abdominal tenderness abdomen is soft without any rebound or guarding appreciated. Labs obtained here in the emergency department show no leukocytosis no signs of HONG lipase within normal range and patient's test is negative. She is given Zofran and Pepcid for nausea symptoms here in the emergency department. Patient reevaluated after Zofran Pepcid and fluids given here in emergency department updated patient on reassuring findings here in emergency department. She feels significantly better and is tolerating eating and drinking here in the emergency department without difficulty. Discussed with patient given reassuring weight workup she is most likely safe for discharge home. She will return to the emergency department with any fevers severe nausea and vomiting despite taking Zofran or abdominal pain. Patient understands and is agreeable with this plan. She was instructed on good hand hygiene until symptoms resolve and follow-up with PCP in 1 week to ensure resolution of symptoms. Patient agreeable with this plan. Departure - Departure Disposition: 01 Home, Self Care Clinical Impression: Gastroenteritis Condition: Good Comments: He was seen here in the emergency department for your nausea vomiting diarrhea symptoms your workup here shows symptoms most likely secondary to gastro enteritis. A giving you medications to help with your symptoms at home to see if this will improve your symptoms. You need to follow-up with your PCP in the outpatient setting 1 week to ensure resolution of symptoms. You can follow a brat diet this includes brown rice applesauce toast to help with your symptoms. Symptoms usually last between 24 to 36 hours. However symptoms can last up to a week. If you develop worsening nausea vomiting unable to tolerate eating and drinking despite taking Zofran you develop any fevers or severe abdominal pain you should return to the emergency department. Forms: PCP List
[2023-09-16] MEDS: FAMOTIDINE 20 MG/2 ML VIAL IVP STA (11:25)
[2023-09-16] MEDS: ONDANSETRON 4 MG/2 ML VIAL IVP STA ×2 (11:25→12:20)
[2023-09-16 11:39] LABS: HCG UR QUAL NEGATIVE
[2023-09-16] MEDS: SODIUM CHLORIDE 0.9% 1,000 ML IV STA (12:24)
[2023-09-16 13:51] VITALS: BP 170/105
== END 2023-09-16 13:44 | disposition home or self-care (01) ==
LOC: ED 09:50
DX: K52.9 Noninfective gastroenteritis and colitis, unspecified (principal); I10 Essential (primary) hypertension; Z79.899 Other long term (current) drug therapy
CPT/HCPCS: 36415; 80053; 81001; 81003; 81025; 83690; 85025; 87086; 96374; 99284